=== PATIENT | male | born 1970 | race Caucasian/White ===

== ENCOUNTER 2018-09-27 08:55 | Day surgery (SDC) | payer BC ==
[~2018-09-27 08:55] MED LIST: Lactated Ringers 1,000 ML IV ONE
[2018-09-27] MEDS ORDERED: Lactated Ringers 1,000 ML IV SCH (09:00)
[2018-09-27] MEDS ORDERED: Lactated Ringers 1,000 ML IV ONE (10:20)
[2018-09-27 11:12] VITALS: O2SAT 99
[2018-09-27 11:25] VITALS: BP 125/62; PULSE 72
--- NOTE | 2018-09-29 07:34 | HP ---
HISTORY: A 48 year-old in need of screening colonoscopy. PAST MEDICAL HISTORY: No chronic illnesses. PAST SURGICAL HISTORY: Excision of benign lesions forehead and left leg. HOME MEDICATIONS: None on a regular basis. ALLERGIES: NKDA. FAMILY HISTORY: Hypertension, juvenile diabetes, acquired cardiomyopathy non-atherosclerotic, history of prostate cancer age 70's. SOCIAL HISTORY: No smoking. No alcohol abuse only on rare occasion alcohol use. REVIEW OF SYSTEMS: Twelve systems reviewed. No chest pain or palpitations other systems negative or noncontributory as above and per preadmission questionnaire. PHYSICAL EXAMINATION: GENERAL: No acute distress. HEENT: Sclera nonicteric. NECK: No JVD. CHEST: Clear to auscultation. CVS: Regular rhythm. ABDOMEN: Soft, nontender. No peritoneal signs. EXTREMITIES: No edema or cyanosis. NEURO: Alert, moving extremities grossly symmetrically. No gross motor deficits noted. RECTAL: Deferred timed to endoscopy exam. IMPRESSION: A 48 year-old male in need of screening colonoscopy. Risks are known. Consent obtained. Outpatient screening colonoscopy planned.
--- NOTE | 2018-09-29 10:27 | OP ---
SURGERY DATE/TIME: 09/27/2018 0950 PREOPERATIVE DIAGNOSIS: Screening. The patient is 48. POSTOPERATIVE DIAGNOSIS: Mild hemorrhoids. Normal examination. PROCEDURE: Colonoscopy complete to cecum. SURGEON: Kavin Quiros M.D. ANESTHESIA: IV sedation. COMPLICATIONS: None. CONDITION: Stable. FINDINGS: Mild hemorrhoids. Normal examination. Anticipated follow up ten years. WITHDRAWAL TIME: 6 minutes. PREP SCORE: 9 out of 9, excellent. INDICATION: Patient presents for screening. He has no symptoms. DESCRIPTION OF PROCEDURE: He was taken to endoscopy. Time out performed. Anal digital examination satisfactory. Prostate satisfactory. It was smooth. It was normal size for age. The scope is advanced anus, rectum. Sigmoid was short. Descending colon was long. Splenic flexure was quite high. He is quite tall. Splenic flexure was turned. Very significant splenic flexure. Transverse colon fairly short. Hepatic flexure fairly short. Ascending, cecum, base of cecum, ileocecal valve and appendiceal orifice trifurcation was normal. The prep was excellent. There was one flake of stool at the ileocecal valve this was irrigated. There were no mucosal lesions. Base of the cecum, ascending, hepatic, transverse, splenic, descending, sigmoid there was no diverticulosis. Rectum/anus there was mild hemorrhoids. IMPRESSION: Normal examination. PLAN: Follow up in ten years unless symptoms occur.
== END 2018-09-27 11:20 | disposition home or self-care (01) ==
LOC: SDC 08:55
PROVIDERS: ATTEND Surgery
DX: Z12.11 Encounter for screening for malignant neoplasm of colon (principal); K64.4 Residual hemorrhoidal skin tags

== ENCOUNTER 2023-12-21 09:00 | Day surgery (SDC) | payer BC ==
--- NOTE | 2023-12-18 11:14 | HP ---
DATE OF SURGERY: 12/21/2023 HISTORY OF PRESENT ILLNESS: The patient is a 53-year-old male presents for endoscopy. The patient is due for colonoscopy screening at this time. PAST MEDICAL HISTORY: None reported. PAST SURGICAL HISTORY: None reported. ALLERGIES: NKDA. MEDICATIONS: None reported. FAMILY HISTORY: None reported. SOCIAL HISTORY: None reported. REVIEW OF SYSTEMS: CONSTITUTIONAL: Denies fever or chills. CHEST: Denies shortness of breath. CVS: Denies chest pain. ABDOMEN: Denies abdominal pain. PHYSICAL EXAMINATION: GENERAL: No acute distress. CHEST: Nonlabored. No shortness of breath. CVS: Regular rate and rhythm. ABDOMEN: Soft. IMPRESSION: Screening. PLAN: Colonoscopy with Dr. Kavin Quiros. As dictated by Digna Simpson NP.
[~2023-12-21 09:00] MED LIST changes: +DEMEROL 50 MG ONE; -Lactated Ringers 1,000 ML IV ONE; +VERSED 5 MG/5 ML ONE
[2023-12-21] MEDS ORDERED: Lactated Ringers 1,000 ML IV ONE (09:17)
[2023-12-21 09:20] VITALS: RESP 18
[2023-12-21 10:24] VITALS: O2SAT 96
[2023-12-21 10:35] VITALS: BP 127/79; PULSE 67; TEMP 97
--- NOTE | 2023-12-23 10:59 | OP ---
SURGERY DATE: 12/21/2023 SURGERY TIME: 939 PREOPERATIVE DIAGNOSIS: 1. SCREENING. POSTOPERATIVE DIAGNOSIS: 1. ONE POLYP. PROCEDURE: 1. Colonoscopy complete to cecum. 2. Hot polypectomy X 1. SURGEON: Kavin Quiros M.D. ANESTHESIA: 30 minutes of IV sedation monitored. COMPLICATIONS: None. CONDITION: Stable. INDICATION: Patient requiring a 5 year screening exam. He presented at 48, he is 53 now. He has no symptoms. OPERATIVE PROCEDURE: He was taken to endoscopy. Left lateral decubitus position. Anal digital examination satisfactory. Prostate satisfactory. Scope introduced. Scope advanced to the cecum. There was no diverticulosis. There were no mucosal lesions going up. Base of the cecum, ileocecal valve, and appendiceal orifice are normal and excellent prep was present. Ascending colon, hepatic flexure, transverse colon, splenic flexure. In the descending colon in the mid portion was an 8 mm polyp on the posteromedial wall. 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 Sigmoid satisfactory. Rectum satisfactory. Anus satisfactory. He has had some irritation from the prep, but there was nothing functional here. Scope withdrawn. Patient tolerated the procedure satisfactory. Findings discussed with the . Pictures given to the . PLAN: 5 year follow-up.
== END 2023-12-21 10:45 | disposition home or self-care (01) ==
LOC: SDC 09:00 → EDSTATUS 10:31 → SDC 10:45
PROVIDERS: ATTEND Surgery
DX: Z12.11 Encounter for screening for malignant neoplasm of colon (principal); D12.4 Benign neoplasm of descending colon
CPT/HCPCS: J2175; J2250